=== PATIENT | male | born 1980 | race Caucasian/White ===

== ENCOUNTER 2021-09-10 19:23 | Emergency (ER) | payer BC ==
[2021-09-10 19:28] VITALS: BP 126/80; PULSE 90; RESP 18; TEMP 100.1
[2021-09-10] MEDS ORDERED: ACETAMINOPHEN TAB 500 MG TAB PO STA (20:23)
--- NOTE | 2021-09-10 20:45 | XR ---
EXAMINATION TYPE: XR chest 2V DATE OF EXAM: 09/10/2021 COMPARISON: NONE HISTORY: Cough TECHNIQUE: Frontal and lateral views of the chest are obtained. FINDINGS: Right middle lobe infiltrate. Correlate for pneumonia. No evidence for pneumothorax. No pleural effusion. The cardiac silhouette size is within normal limits. The osseous structures are grossly intact. IMPRESSION: 1. Right middle lobe infiltrate. Correlate for pneumonia.
[2021-09-10] MEDS ORDERED: DOXYCYCLINE 100 MG CAP PO STA (22:09)
[2021-09-10] MEDS ORDERED: cefTRIAXone 250 MG VIAL IM STA (22:09)
--- NOTE | 2021-09-10 22:12 | ED ---
General Adult HPI - General Chief complaint: Upper Respiratory Infection Stated complaint: MELISSA Time Seen by Provider: 09/10/21 20:01 Source: patient, RN notes reviewed, old records reviewed Mode of arrival: ambulatory Limitations: no limitations - History of Present Illness Initial comments: Patient is a 41-year-old male with past medical history remarkable for asthma who presents emergency Department complaining of upper respiratory symptoms. Patient's son has RSV. States he believes he cut RSV last week as well. His been having upper respiratory symptoms. Initially sign urgent care was started on steroids as well as continued rescue inhaler. States that he believes his cough is getting worse over the last 1-2 days. Endorses coughing up green mucous in the morning. Endorses mild low-grade fevers. Was vaccinated with 2 boosters for COVID-19. Denies any nausea, vomiting. Denies any sore throat. Has no chest pain. Presents over concern for worsening cough and upper respiratory infection. - Related Data Previous Rx's Medication Instructions Recorded Doxycycline [Vibramycin] 100 mg PO BID 7 Days #14 capsule 09/10/21 Allergies Allergy/AdvReac Type Severity Reaction Status Date / Time No Known Allergies Allergy Verified 09/10/21 19:28 Review of Systems ROS Statement: Those systems with pertinent positive or pertinent negative responses have been documented in the HPI. Review of Systems: CONST: Endorses fever EYES: Denies blurry vision ENT: Endorses nasal congestion C/V: Denies Chest pain RESP: Endorses cough GI: Denies abdominal pain : Denies dysuria SKIN: Denies rash. MSK: Denies joint pain. NEURO: Denies headache ROS Other: All systems not noted in ROS Statement are negative. Past Medical History Past Medical History: Asthma History of Any Multi-Drug Resistant Organisms: None Reported Past Surgical History: No Surgical Hx Reported Past Psychological History: No Psychological Hx Reported Smoking Status: Never smoker Past Alcohol Use History: Occasional Past Drug Use History: None Reported General Exam - General Exam Comments Initial Comments: General: Appears in no acute distress. Low grade fever. HEAD: Normal with no signs of head trauma. EYES: PERRLA, EOMI, conjunctiva normal, no discharge. ENT: Hearing grossly intact, normal oropharynx. RESPIRATORY: Relatively clear breath sounds bilaterally. No obvious wheezes or rhonchi. No hypoxia. No increased work of breathing. C/V: Regular rate and rhythm. S1 and S2 auscultated, no edema, peripheral pulses 2+ and intact throughout ABD: Abd is soft, nontender, nondistended EXT: No obvious deformity. SKIN: No rashes or lesions observed on exposed skin. NEURO: Alert and oriented 4. Limitations: no limitations Course Vital Signs 09/10/21 19:26 Temperature 100.1 F H Pulse Rate 90 Respiratory 18 Rate Blood Pressure 126/80 O2 Sat by Pulse 96 Oximetry Medical Decision Making - Medical Decision Making Based on the patient's presentation and physical exam, I'm concerned for possible worsening upper respiratory infection for the patient. We'll obtained Covid, flu, RSV testing as well as a chest x-ray. He'll be given Tylenol for his low-grade fever. He was in agreement this plan. No active asthma exacerbation this time. Is already on oral steroids at home and as needed inhalers. Patient is positive for his fever and negative for influenza and Covid. Chest x-ray shows a right middle lobe pneumonia. I discussed the findings with the patient. Vital signs remained within normal limits and stable. He will be started on antibiotics. Recommended continuing his steroids at home. He was in agreement with this plan. Patient is visiting from [place] and can return to the emergency Department as needed for worsening symptoms. He has a pulse ox and we discussed proper usage as well as desired pulse oximeter readings. I answered all questions that he had. Will be given a dose of antibiotics prior to discharge. I will provide the patient with a prescription for doxycycline. I instructed the patient to follow up with their PCP in the next 1-3 days. I explained that the patient should return to the emergency department if they experience any worsening symptoms. Strict return precautions were discussed with the patient. The patient expressed understanding of these instructions. I answered all questions that the patient had. The patient was discharged home in good condition with their prescriptions and follow up information. - Lab Data Lab Results 09/10/21 Range/Units 20:29 Influenza Type A (PCR) Not Detected (Not Detectd) Influenza Type B (PCR) Not Detected (Not Detectd) RSV (PCR) Detected A (Not Detectd) SARS-CoV-2 (PCR) Not Detected (Not Detectd) Disposition Clinical Impression: Community acquired pneumonia Disposition: HOME SELF-CARE Condition: Good Instructions (If sedation given, give patient instructions): Community Acquired Pneumonia (ED) Prescriptions: Doxycycline [Vibramycin] 100 mg PO BID 7 Days #14 capsule Is patient prescribed a controlled substance at d/c from ED?: No Referrals: Nonstaff,Physician [Primary Care Provider] - 1-2 days Time of Disposition: 21:55
== END 2021-09-10 22:31 | disposition home or self-care (01) ==
LOC: EC 19:23
DX: J18.9 Pneumonia, unspecified organism (principal); J45.909 Unspecified asthma, uncomplicated; Z20.822 Contact with and (suspected) exposure to COVID-19
CPT/HCPCS: 71046; 87636; 99284